=== PATIENT | male | born 1990 | race Hispanic/Latino ===

== ENCOUNTER → 2018-12-11 | Outpatient (CLI) | payer BC ==
--- NOTE | 2018-12-11 12:34 | Diagnostic Imaging Report ---
Exam: Right knee 3 views History: Pain Comparison: None. Findings: No fracture or malalignment. Joint spaces preserved. Soft tissue swelling. Impression: Soft tissue swelling. Signed by: Dr. Yvan Moon M.D. on 12/11/2018 12:30 PM
== END ==
LOC: RAD 11:40
PROVIDERS: ATTEND Family Medicine
DX: M25.561 Pain in right knee (principal); L03.115 Cellulitis of right lower limb

== ENCOUNTER 2019-02-26 15:02 | Emergency (ER) | payer BC ==
[~2019-02-26] VITALS: Ht 175.3 cm; Wt 72.6 kg
--- OUTSIDE RECORDS SUMMARY | 2019-02-26 15:06 | XMS REPORT ---
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 Allergies, Adverse Reactions, Alerts This patient has no known allergies or adverse reactions. Medications This patient has no known medications. Results Test Description Test Time Test Comments Text Results Atomic Results Result Comments KNEE RIGHT THREE VIEWS 2018-12-11 12:30:00 [facility] [address] [place] [address] Patient Name: COURTNEY PATEL MR #: [id number] : 1990 Age/Sex: 28/M Req #: [id number] Adm Physician: Ordered by: NISH NOYOLA, SARAH Motley MD Report #: [id number] Location: [facility] Room/Bed: Procedure: [id number] DX/KNEE RIGHT THREE VIEWS Exam Date: 12/11/18 Exam Time: 1200 REPORT STATUS: Signed Exam: Right knee 3 views History: Pain Comparison: None. Findings: No fracture or malalignment. Joint spaces preserved. Soft tissue swelling. Impression: Soft tissue swelling. Signed by: Dr. Tia Kahn M.D. on 12/11/2018 12:30 PM Dictated By: TIA KHAN MD 1230 Transcribed By: JOSE on 12/11/18 1230 COPY TO: SARAH MOCK
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
[2019-02-26] MEDS ORDERED: IBUPROFEN 600 MG TAB PO ONE (16:22)
[2019-02-26] MEDS ORDERED: CYCLOBENZAPRINE HCL 10 MG TAB PO ONE (16:30)
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
[2019-02-26] MEDS ORDERED: ACETAMINOPHEN 325 MG TAB ONE (18:41)
--- NOTE | 2019-02-26 18:41 | NUR ---
BACK OFFICE MEDICAL ASSISTANT ONLY WANTS MOTRIN NO TYLENOL. SPIKED TEMP 104.0
[2019-02-26] MEDS ORDERED: PENICILLIN G BENZATHINE LA 1.2 MU TBX IM STA (18:43)
== END 2019-02-26 19:51 | disposition home or self-care (01) ==
LOC: ER 15:02
DX: S00.83XA Contusion of other part of head, initial encounter (principal); M54.2 Cervicalgia; S16.1XXA Strain of muscle, fascia and tendon at neck level, initial encounter; H92.02 Otalgia, left ear; M54.6 Pain in thoracic spine; R11.0 Nausea; J02.0 Streptococcal pharyngitis; Y04.0XXA Assault by unarmed brawl or fight, initial encounter; Y92.89 Other specified places as the place of occurrence of the external cause
CPT/HCPCS: 70450; 70486; 72070; 72125; 99283; J0561